=== PATIENT | male | born 1945 | race Caucasian/White ===

== ENCOUNTER 2021-02-16 08:46 | Emergency (ER) | payer MEDICARE ==
[~2021-02-16 08:46] MED LIST: BENTYL 20MG TAB20 MG PO; NORCO 5-325 TA1 EACH PO; ZOFRAN ODT 4 MG4 MG PO
[2021-02-16 10:38] LABS: HEMOGLOBIN 12.3 gm/dl (14.0-17.5); RED BLOOD COUNT 3.84 M/UL (4.20-5.50); WHITE BLOOD COUNT 5.5 K/UL (4.5-11.0)
[2021-02-16 11:00] LABS: BUN/CREATININE RATIO 26 (0-10)
== END 2021-02-16 12:30 | disposition home or self-care (01) ==
LOC: ER1 08:46
PROVIDERS: Physician Assistant
DX: M54.2 Cervicalgia (principal); M79.602 Pain in left arm; E11.9 Type 2 diabetes mellitus without complications; J44.9 Chronic obstructive pulmonary disease, unspecified; Z79.899 Other long term (current) drug therapy
CPT/HCPCS: 71045; 80053; 82550; 82553; 83874; 84484; 85025; 93005; 96372; 99284; J1885

== ENCOUNTER 2021-08-21 14:38 | Emergency (ER) | payer MEDICARE | END 2021-08-21 17:00 | disposition home or self-care (01) | LOC: ER1 14:38 | DX: U07.1 COVID-19 (principal); I25.10 Atherosclerotic heart disease of native coronary artery without angina pectoris; Z23 Encounter for immunization | CPT/HCPCS: 99283; M0243 ==

== ENCOUNTER 2022-06-14 13:59 | Observation (INO) | payer MEDICARE ==
[~2022-06-14] VITALS: Ht 175.3 cm; Wt 75.4 kg
[2022-06-14 14:11] LABS: HEMOGLOBIN 11.7 gm/dl (14.0-17.5); RED BLOOD COUNT 3.97 M/UL (4.20-5.50); WHITE BLOOD COUNT 6.4 K/UL (4.5-11.0)
[2022-06-14 14:31] LABS: BUN/CREATININE RATIO 18 (0-10)
[2022-06-15] MEDS ORDERED: OMEPRAZOLE20 MG PO (14:01)
[2022-06-15] MEDS ORDERED: FARXIGA10 MG PO (14:01)
[2022-06-15] MEDS ORDERED: ASPIRIN EC81 MG PO (14:02)
[2022-06-15] MEDS ORDERED: RAMIPRIL10 MG PO (14:02)
[2022-06-15] MEDS ORDERED: CARVEDILOL3.125 MG PO (14:02)
[2022-06-15] MEDS ORDERED: PIOGLITAZONE HC30 MG PO (14:03)
[2022-06-15] MEDS ORDERED: TRESIBA FL100 UNIT/1 SQ (14:03)
[2022-06-15] MEDS ORDERED: ZETIA10 MG PO (14:03)
[2022-06-15] MEDS ORDERED: IPRAT-ALBUT 0.5-3 ML NEB (14:04)
[2022-06-15] MEDS ORDERED: CRESTOR20 MG PO (14:04)
[2022-06-15] MEDS ORDERED: PROVENTIL HFA6.7 GM INH (14:05)
[2022-06-15] MEDS ORDERED: JENTADUETO 2.51 EACH PO (14:10)
[2022-06-16 06:39] LABS: HEMOGLOBIN 11.4 gm/dl (14.0-17.5); RED BLOOD COUNT 3.96 M/UL (4.20-5.50); WHITE BLOOD COUNT 5.4 K/UL (4.5-11.0)
[2022-06-16 06:55] LABS: BUN/CREATININE RATIO 22 (0-10)
[2022-06-16] MEDS ORDERED: MECLIZINE HCL25 MG PO (13:19)
[2022-06-16] MEDS ORDERED: NITROGLYCERIN0.4 MG SL (13:19)
[2022-06-16] MEDS ORDERED: HYDRALAZINE HCL25 MG PO (13:57)
== END 2022-06-16 15:39 | disposition home or self-care (01) ==
LOC: ER1 13:59 → MED SURG 4 20:34 → CDU 20:34 → MED SURG 4 22:07
PROVIDERS: Emergency Medicine; ADMIT Internal Medicine
DX: R07.89 Other chest pain (principal); I25.10 Atherosclerotic heart disease of native coronary artery without angina pectoris; E11.51 Type 2 diabetes mellitus with diabetic peripheral angiopathy without gangrene; I10 Essential (primary) hypertension; J44.9 Chronic obstructive pulmonary disease, unspecified; E78.5 Hyperlipidemia, unspecified; D64.9 Anemia, unspecified; Z79.4 Long term (current) use of insulin; Z79.82 Long term (current) use of aspirin; Z79.84 Long term (current) use of oral hypoglycemic drugs; Z79.899 Other long term (current) drug therapy; Z87.891 Personal history of nicotine dependence; Z95.1 Presence of aortocoronary bypass graft; Z95.5 Presence of coronary angioplasty implant and graft
CPT/HCPCS: ECHO; 70450; 71045; 80048; 80053; 80061; 82533; 82550; 82553; 82962; 83036; 83735; 83880; 84100; 84439; 84443; 84484; 85025; 93005; 93270; 93306; 96372; 99285; G0378; J1650; Q9967